=== PATIENT | female | born 2005 | race Caucasian/White ===

== ENCOUNTER 2025-03-17 07:55 | Day surgery (SDC) | payer OTHER ==
[~2025-03-17] VITALS: Ht 167.6 cm; Wt 68.6 kg
[2025-03-17] MEDS: ACETAMINOPHEN 500 MG TAB PO ONE (06:00)
[2025-03-17] MEDS: SCOPOLAMINE 1MG TRANSDERMAL PATCH TOP ONE (06:00)
[~2025-03-17 07:55] MED LIST: EPIN0.3I11; JUNE1TAB; KETOROLAC 30 MG/ML 1 ML VIAL As Ordered ONE; LIDOCAINE 2% 100 MG/5 ML SDV (FOR ANES.) As Ordered ONE; ONDANSETRON 4MG/2ML VIAL As Ordered ONE; ROCURONIUM BROMIDE 50MG/5ML VIAL As Ordered ONE; SUGAMMADEX SODIUM 500 MG/5 ML VIAL As Ordered ONE; dexAMETHasone 4 MG/ML 1 ML VIAL As Ordered ONE
[2025-03-17] MEDS ORDERED: MIDAZOLAM INJ 2 MG/2 ML VIAL As Ordered ONE (08:06)
[2025-03-17 08:30] LABS: BASO # 0.0 10^3/uL (0.0-0.2); BASO % 0.4 % (0.0-1.0); EOS # 0.1 10^3/uL (0.0-0.5); EOS % 1.7 % (0.0-3.0); LYMPH # 2.4 10^3/uL (1.5-5.0); LYMPH % 51.0 % (24.0-44.0); MONO # 0.5 10^3/uL (0.0-0.8); MONO % 10.7 % (2.0-8.0); NEUTROPHILS # 1.7 10^3/uL (1.5-8.5); NEUTROPHILS % 36.0 % (36.0-66.0); PLATELET COUNT, AUTOMATED 211 10^3/uL (150-450)
[2025-03-17 09:46] LABS: HCG, SERUM QUALITATIVE NEGATIVE (NEGATIVE)
[2025-03-17] MEDS: DOXYCYCLINE HYCLATE 100 MG in DEXTROSE 5% (D5W) MINI-BAG PLU 100 ML IV SCH (09:55)
[2025-03-17] MEDS ORDERED: ACETAMINOPHEN 1000MG/100ML IV BAG As Ordered ONE (10:04)
[2025-03-17] MEDS: METHYLENE BLUE 0.5% (5 MG/ML) 10 ML AMP As Ordered ONE (10:17)
[2025-03-17] MEDS ORDERED: MORPHINE 2 MG/ML 1 ML VIAL IV PRN (10:55)
[2025-03-17] MEDS: HYDROMORPHONE HCL 0.5 MG/0.5 ML SYRINGE IV PRN (11:06)
[2025-03-17 12:09] VITALS: BP 110/70; TEMP 97.2; O2SAT 100
== END 2025-03-17 13:42 | disposition home or self-care (01) ==
LOC: M SDC 07:55
PROVIDERS: ATTEND General Practice
DX: N80.399 Endometriosis of the pelvic peritoneum, other specified sites, unspecified depth (principal); N80.103 Endometriosis of bilateral ovaries, unspecified depth; R10.20 Pelvic and perineal pain unspecified side
CPT/HCPCS: 36415; 58662; 81025; 84703; 85025; 86850; 86900; 86901; 88305; J0131; J0665; J1100; J1171; J1271; J1885; J2250; J2405; J2765; J3010; J3490